=== PATIENT | female | born 1970 | race Caucasian/White ===

== ENCOUNTER → 2017-07-21 09:49 | Outpatient (CLI) | payer OTHER, SELFPAY ==
--- NOTE | 2017-07-21 09:57 | US_ITS ---
STUDY: SUPERFICIAL ULTRASOUND - ABNORMALITY IN THE LEFT FOREARM. REASON FOR EXAM: Female, 46 years old. Palpable abnormality in the left forearm. TECHNIQUE: A superficial ultrasound was performed with real-time and static soriano-scale imaging. COMPARISON: None. FINDINGS: There is a 1.5 cm x 1.5 cm x 0.5 cm slightly echogenic nodule corresponding to the palpable abnormality. 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 A biopsy is indicated for further evaluation. US/Ext Non Vasc Limited/Soft Tiss IMPRESSION: The palpable abnormality corresponds to a 1.5 cm x 1.5 cm x 0.5 cm slightly echogenic nodule. 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 Tissue diagnosis is recommended. Electronically Signed: Shyam Brownlee MD at 14:05 EDT Tel [phone], Service support ,
== END ==
PROVIDERS: Family Provider Obstetrics & Gynecology; PCP Obstetrics & Gynecology; Visit Provider Family Medicine
DX: D17.22 Benign lipomatous neoplasm of skin and subcutaneous tissue of left arm (principal)
CPT/HCPCS: 76882

== ENCOUNTER → 2017-11-17 12:43 | Outpatient (CLI) | payer OTHER, SELFPAY ==
--- NOTE | 2017-11-17 12:44 | BI_ITS ---
MAMMOGRAPHY - BILATERAL SCREENING REASON FOR EXAM: Female, 47 years old. Routine annual screening examination. PERTINENT HISTORY: Non-contributory. TECHNIQUE: Digital bilateral breast tara (3D mammographic acquisition) in the CC and MLO projections. 2-D mediolateral oblique (MLO) and craniocaudad (CC) views of both breasts were obtained. CAD: Full Field Digital Mammography with Computer Added Detection was performed. COMPARISON: Comparison is made with prior outside examination dated October 29, 2016 FINDINGS: Breast Composition: The breasts are heterogeneously dense, which may obscure small masses. There are no dominant masses or suspicious calcifications. No other significant abnormalities are identified. There has been no significant change since the prior study. BI/SCREENING MAMM (CAD), BILAT IMPRESSION: Stable bilateral screening mammogram. Yearly follow-up mammogram recommended. (A) ASSESSMENT CATEGORY: BIRADS Category 1: Negative. A letter regarding these results will be sent to the patient by the facility within 30 days. Approximately 10% of breast cancers are not detected by mammography. A normal mammogram should not delay biopsy of a clinically suspicious abnormality. [id number] Electronically Signed: Shyam Borwnlee MD at 13:31 EDT Tel [phone], Service support ,
== END ==
PROVIDERS: Family Provider Obstetrics & Gynecology; PCP Obstetrics & Gynecology; Visit Provider Obstetrics & Gynecology
DX: Z12.31 Encounter for screening mammogram for malignant neoplasm of breast (principal)
CPT/HCPCS: 77063; 77067